=== PATIENT | female | born 1965 | race Caucasian/White ===

== ENCOUNTER 2017-03-01 17:30 | Inpatient (IN) | payer MEDICARE, MEDICAID ==
[~2017-03-01] VITALS: Ht 160 cm; Wt 82.7 kg
--- NOTE | ~2017-03-01 | CON ---
PATIENT'S NAME: [facility] AGE: 51 Y [address] ROOM: [id number] [place], [place] [address] LOCATION: GPCU ADMIT DATE: 03/01/2017 Consultation DISCHARGE DATE: FAMILY PHYSICIAN: Constantine Khan DO ATTENDING PHYSICIAN: Tobi Odom CONSULTING PHYSICIAN: Tobi Odom MD. SERVICE: Gynecology Service. REASON FOR CONSULTATION: Evaluation for pelvic mass versus fibroid uterus. HISTORY OF PRESENT ILLNESS: The patient is a 51-year-old G0 female, who was admitted earlier this a.m. for concern for acute kidney injury and possible sepsis with septic shock. Of note, the patient has a history of developmental delays with associated cognitive impairments. The patient states she was not feeling well for about the last week, began having abdominal pain and nausea, vomiting, and presented to the hospital. She was transferred from [place] where she was found to be hypotensive despite IV fluids and had elevated creatinine at 9. When I see her in the room this afternoon, the patient states that her nausea and vomiting have improved as well as her abdominal pain. She denies any vaginal bleeding. PAST MEDICAL HISTORY: Significant for: 1. Hypertension. 2. Type 2 diabetes. 3. Developmental delays. 4. Morbid obesity. SURGICAL HISTORY: Negative. TRAINING AND DEVELOPMENT COORDINATOR HISTORY: The patient is a G0. Not sexually active. Denies any issues with menses. Denies any problems with heavy bleeding or cramping and denies any pelvic pressure or pain. She does report regular cycles approximately once a month. She is not on any contraceptives at this time. She states she has regular annual exams with her provider in [place] and thinks she had a normal pap in the last year. ALLERGIES: SHE HAS NO KNOWN ALLERGIES. PATIENT'S NAME: [facility] AGE: 51 Y [address] ROOM: [id number] [place], [place] [address] LOCATION: GPCU ADMIT DATE: 03/01/2017 Consultation DISCHARGE DATE: FAMILY PHYSICIAN: Constantine Khan DO ATTENDING PHYSICIAN: Tobi Odom CURRENT MEDICATIONS: 1. Lisinopril and hydrochlorothiazide. 2. Metformin. 3. Norvasc. FAMILY HISTORY: Significant for mom with heart disease and is , and an older sister and brother who are healthy. SOCIAL HISTORY: The patient lives in [place]. Denies any tobacco, alcohol, or drug use. REVIEW OF SYSTEMS: Negative except as noted above. OBJECTIVE: VITAL SIGNS: Stable. GENERAL: She appears awake and alert. CARDIAC: Regular rate and rhythm. LUNGS: Clear to auscultation bilaterally. ABDOMEN: Soft, obese, nontender. EXTREMITIES: No cyanosis or clubbing. She has trace edema. The patient at this point in time is up to chair and refuses a pelvic exam due to fear of discomfort. IMAGING DATA: Her CT scan and ultrasound report were reviewed. Ultrasound is significant for an enlarged fibroid uterus with measurements of 12.5 x 10.1 x 8.8 cm. Normal endometrial stripe. Ovaries were not visualized on the ultrasound. However, they were visualized on CT scan, and it did not show any abnormalities. She has not had any lymphadenopathy noted on CT scan either. ASSESSMENT AND PLAN: This is a 51-year-old G0, who presented to the hospital with complaints of abdominal pain, nausea, and vomiting. We were asked to see the patient for a pelvic mass. 1. It appears that the patient's pelvic mass is her fibroid uterus. The patient at this time is not having any symptoms related to her fibroids and does not complain of any issues with heavy vaginal bleeding or pelvic pressure or pain. As her abdominal pain, nausea, and vomiting have improved, it is highly unlikely that these are related in any way to her fibroid uterus and did not require further clinical followup at this point in time. Should the patient choose to decide to do something about her fibroids, if they were to become symptomatic, she will be welcome to see us in the office. I discussed with the patient that I would come by PATIENT'S NAME: YOJANA GARCIA [facility] AGE: 51 Y [address] ROOM: [address] [address] LOCATION: [facility] ADMIT DATE: 03/01/2017 Consultation DISCHARGE DATE: FAMILY PHYSICIAN: Constantine Khan DO ATTENDING PHYSICIAN: Tobi Odom and discuss findings from the ultrasound report once those are available to her. Again as noted above, the patient declined a pelvic exam, but in light of her normal ultrasound aside from a fibroid uterus, I think that it is acceptable to avoid that at this time due to patient's discomfort. If she has any questions, please do not hesitate to call me. MD KEITH ADAMS/kofi /[id number] d: 03/03/172 t: 03/03/17 0901, CONSULTATION REPORT
--- NOTE | ~2017-03-01 | DS ---
PATIENT'S NAME: [facility] AGE: 51 Y [address] ROOM: [id number] [place] [id number] LOCATION: GPCU ADMIT DATE: 03/01/2017 Discharge Summary DISCHARGE DATE: 03/04/2017 FAMILY PHYSICIAN: Constantine Khan DO ATTENDING PHYSICIAN: Tobi Odom ADMITTING DIAGNOSIS: Acute kidney injury. DISCHARGE DIAGNOSIS: Acute kidney injury, resolved. SECONDARY DIAGNOSES: 1. Hypovolemic shock. 2. Diabetes mellitus, type 2. 3. Uterus fibroid. 4. Nausea and vomiting. 5. Hypertension. 6. History of developmental delay. CONSULTATIONS: 1. Nephrology. 2. Gynecology. HISTORY OF PRESENT ILLNESS: The patient is a 51-year-old female with history of developmental delay associated with cognitive impairment and hypertension, who was transferred here to our hospital from [place] with concern for sepsis with septic shock and acute kidney injury. Apparently, she has not been feeling well for the past few days, and reports of having some viral-like illness associated with multiple episodes of non-bloody nausea and vomiting. The patient drove herself to Clinic in [place], where Dr. Khan found her systolic blood pressure to be in the 70s. She was taken to the [place] [facility], and received IV fluids. Her blood pressure improved after initial fluid bolus, but remained marginally hypotensive. She was found to have a significant elevated creatinine at 9. X-rays were performed, which did not show any obvious obstruction, but there was a concern for a pelvic mass. On arrival here, the patient reports of improving symptoms of nausea and vomiting. HOSPITAL COURSE: The patient was initially admitted to ICU for suspicions of septic shock as the patient had elevated white blood cell count of 18. The patient was initially started on broad-spectrum antibiotics, on Zyvox and meropenem. However, the patient's symptoms improved during stay. She was afebrile and leukocytosis improved the next day. UA was unremarkable. Blood culture done at [place] did not show any growth. Chest x-ray was unremarkable. The patient also had a CT abdomen as a followup for her abnormal x-ray. CT showed huge fibroid uterus. The patient was seen by Gynecology during stay. PATIENT'S NAME: [facility] AGE: 51 Y [address] ROOM: [address] [place], [place] [address] LOCATION: GPCU ADMIT DATE: 03/01/2017 Discharge Summary DISCHARGE DATE: 03/04/2017 FAMILY PHYSICIAN: Constantine Khan DO ATTENDING PHYSICIAN: Tobi Odom The patient's symptoms improved with improvement of the leukocytosis and also GALINA. The patient's creatinine on discharge was 0.9. The patient was also seen by packaging design engineer during her stay. As the patient does not have any positive blood culture, improving leukocytosis, and no source of infection, the patient was clinically ruled out from having a septic shock. Etiology of presentation most likely was secondary to hypovolemic shock due to multiple nausea and vomiting, and being on concurrent use of diuretics. The patient was discharged home in stable condition, to follow up with her primary care physician and also Dr. Redmond, an HIGH SPEED PRINTER OPERATOR doctor for her fibroid uterus. CONDITION: Stable. DISPOSITION: Home. DISCHARGE MEDICATIONS: See MAR. DISCHARGE INSTRUCTIONS: Follow up with primary care physician and HIGH SPEED PRINTER OPERATOR. FOLLOWUP: With primary care physician and HIGH SPEED PRINTER OPERATOR. Greater than 30 minutes was spent on discharge planning. MD MARLENE KING/kofi /[id number] d: 03/05/17 0402 t: 03/23/17 1533, DISCHARGE SUMMARY
--- NOTE | ~2017-03-01 | CON ---
PATIENT'S NAME: YOJANA GARCIA [facility] AGE: 51 Y [address] ROOM: [address] [place], [place] [address] LOCATION: GPCU ADMIT DATE: 03/01/2017 Consultation DISCHARGE DATE: FAMILY PHYSICIAN: Constantine Khan DO ATTENDING PHYSICIAN: Tobi Odom DATE OF CONSULTATION: 03/02/2017 REFERRING PHYSICIAN: Noe Posada MD REASON FOR CONSULTATION: Acute kidney injury. HISTORY OF PRESENT ILLNESS: A 51-year-old female with history of hypertension, type 2 diabetes, developmental delay, and associated mild cognitive impairment, admitted to [facility] after being transferred from [place] with concern for sepsis and septic shock and acute kidney injury. She was not feeling well for about a week, although the exact duration is unknown, and the patient could not specify because of her cognitive impairment. She has had some abdominal discomfort with some nausea and vomiting. She states that whenever she tries to drink something she was vomiting, several episodes of vomiting every day and was not able to keep anything down. She drove herself to the clinic at [place] with Dr. Khan, found to have a systolic blood pressure in 70s, was taken to the [place] Emergency Room, got some IV fluid. Blood pressure improved after initial fluid bolus, however, still remained marginally hypotensive. Creatinine was 9, and the patient was transferred to [facility] for higher level of care. After arrival here, she got a little bit better because of couple of liters of fluid transfusion, still has some nausea and generalized abdominal discomfort at night, but which improved this morning. No chest pain, shortness of breath, orthopnea, PND. No further nausea or vomiting. The patient was found to have significant leukocytosis of 18,000 without any definitive source. CT scan was done last night. The prelim report shows no significant hydronephrosis, bilateral lung bases are clear, but there is a midline pelvic mass, possibly uterine fibroid. The full chest CT report is still pending. She denied any numbness, tingling, weakness, or any other neurological symptoms. The patient was taking losartan hydrochlorothiazide for her blood pressure control, and she was taking it while she was having poor p.o. intake. Denied any significant NSAID use. REVIEW OF SYSTEMS: GENERAL: No fever. No chills or rigor. HEENT: No sore throat. No sinus congestion. CVS: No chest pain. No exertional shortness of breath. No leg swelling. RESPIRATORY: No shortness of breath. No cough. No wheezing. GENITOURINARY: No pain with urination. Decreased urinary frequency. No nocturia. GASTROINTESTINAL: Diffuse abdominal pain as mentioned above, but currently denies any pain or discomfort. No abdominal distention. Complains of nausea and vomiting. NEUROLOGIC: No weakness. No seizures. SKIN: No rash. No itching. ALLERGIES: No seasonal allergy. No hayfever. ENDOCRINE: No heat intolerance. No cold intolerance. PSYCHIATRIC: No sadness. No crying spells. No history of panic attack.PATIENT'S NAME: YOJANA GARCIA [facility] AGE: 51 Y [address] ROOM: [id number] [place] [id number] LOCATION: [facility] ADMIT DATE: 03/01/2017 Consultation DISCHARGE DATE: FAMILY PHYSICIAN: Constantine Khan DO ATTENDING PHYSICIAN: Tobi Odom PAST MEDICAL HISTORY: 1. Essential hypertension. 2. Diabetes mellitus type 2. 3. Developmental delay with mild cognitive impairment. 4. Obesity. PAST SURGICAL HISTORY: Unknown at this point. SOCIAL HISTORY: Unmarried, lives in a low-cost housing independently at [place]. Lifelong nonsmoker. No history of alcohol or IV drug abuse. 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 FAMILY HISTORY: Mother had heart disease. Older sister lives in [place]. Brother lives nearby also healthy. CURRENT MEDICATIONS: 1. Lisinopril/hydrochlorothiazide 20/12.5 p.o. daily. 2. Metformin 500 mg p.o. b.i.d. 3. Norvasc 5 mg p.o. daily. ALLERGIES: NO KNOWN DRUG ALLERGIES. PHYSICAL EXAMINATION: VITAL SIGNS: Blood pressure 100 over 40s to 50s, respiratory rate 18, pulse 80s to 90s temperature 99.1, saturation 93% to 95% on room air. GENERAL: Not in apparent distress. HEAD: Moist mucous membranes. Bilateral PERRLA, EOMI. NECK: No JVD, thyromegaly or lymphadenopathy. CVS: S1 and S2 normal, regular rate and rhythm. No murmur, rub, gallop. CHEST: Bilateral air entry equal. No wheeze or rales. ABDOMEN: Soft, nontender, nondistended. Bowel sounds present. EXTREMITIES: No cyanosis, clubbing, jaundice. No dependent edema. MUSCULOSKELETAL: No limitation of range of motion. SKIN: No pallor, cyanosis, icterus. ENTERTAINMENT AGENT: Alert and oriented x3. No gross findings. LABORATORY TESTING: ABG pH 7.39, pCO2 of 34, pO2 of 82, bicarbonate 20.6. Lactate 1.9. Accu-Chek blood sugar is 120s to 170s. Troponin less than 0.04. CBC, WBC 18,000 hemoglobin 11.5, platelet 253. Chemistry, sodium 137, potassium 2.8, chloride 101, bicarbonate 19, BUN 80, creatinine 5.8, calcium 7.9, albumin 2.6, phosphorus 4.9, magnesium 2.3. Anion gap initially 23, now improved to 19.8. INR 1.08. UA, specific gravity 1.015, pH 5, daily positive protein 1+, blood 2+, wbc rare, rbc 20-50, negative for epithelial cells. A1c 6.5. CT scan report still pending.PATIENT'S NAME: YOJANA GARCIA [facility] AGE: 51 Y [address] ROOM: [place] [address] LOCATION: GPCU ADMIT DATE: 03/01/2017 Consultation DISCHARGE DATE: FAMILY PHYSICIAN: Constantine Khan DO ATTENDING PHYSICIAN: Tobi Odom ASSESSMENT AND PLAN: 1. Nonoliguric acute kidney injury, CLAIRE stage 3, severe. The creatinine went up to 9, 8.4 on transfer, today is 5.8, presumable etiology is acute tubular necrosis in context of severe hypovolemia with poor intake and MITCHELL inhibitor use while being hypovolemic. We will hold her lisinopril hydrochlorothiazide for now. We will send for a repeat UA, urine sodium, potassium, creatinine, osmolality, and a protein creatinine ratio. The patient has had hypertension and diabetes in the past, but we do not know about the baseline. We will continue to monitor the creatinine while it improves. Maintain Hale. Strict intake and output. Daily standing weight. We will do renal panel today at 6:00 p.m. Please call me with the results. We will also send for urine culture sensitivity as there were some blood rbc's and wbc's in the urine, but the patient denied any symptoms of urinary tract infection. 2. Hypokalemia. The patient got 40 mEq of potassium after having a potassium of 2.8 orally. We will give at least 2 doses of 40 mEq IV KCl, and we will recheck renal panel at 6:00 p.m. as mentioned. 3. Metabolic acidosis, possibly secondary to her renal failure, is a combination of anion gap and non-anion gap acidosis. The non-anion gap acidosis component is probably from dilutional due to volume resuscitation since yesterday. We will give D5 with 3 amps of sodium bicarb at least couple of liter bolus followed by 100 mL/h. While doing that, we will closely monitor intake and output and avoid any volume overload and congestion. 4. Hypotension. Questionable history of septic shock with WBC count of 18,000 which may be due to dehydration as well. No obvious source as well. UA although appears to be slightly dirty, but has no symptoms of urinary tract infection. We will check urine culture sensitivity, and we will repeat the urinalysis to rule out any urinary tract infection. The CT scan did show clear lung bases bilaterally, and we will continue to monitor for now. 5. Pelvic mass, possible fibroid. Full CT report is still pending. We will call for CAREER EDUCATION TEACHER evaluation for further evaluation and management. Thank you for allowing me to participate in this patient's care. We will closely monitor the patient's progress along with you. MEET OLIVAS MD /modl /[id number] d: 03/02/172005 t: 03/09/17 1422, CONSULTATION REPORT
--- NOTE | ~2017-03-01 | HP ---
PATIENT'S NAME: YOJANA GARCIA [facility] AGE: 51 Y [address] ROOM: [address] [place], [place] [address] LOCATION: GICU ADMIT DATE: 03/01/2017 History & Physical DISCHARGE DATE: FAMILY PHYSICIAN: PHYSICIAN, UNKNOWN ATTENDING PHYSICIAN: Tobi Odom DATE OF SERVICE: CHIEF COMPLAINT: Acute kidney injury in the setting of suspected severe sepsis. HISTORY OF PRESENTING ILLNESS: This 51-year-old white female with history of developmental delay and associated cognitive impairment, as well as essential hypertension was transferred to [facility] from [place] with concern for sepsis with septic shock and acute kidney injury. She has not been feeling well for about a week. She is able to provide only basic elements to this history. She states she first began to feel unwell with some abdominal discomfort and nausea. She can not relate to me how well she has been eating or drinking. At some point, she developed diffuse nausea and vomiting. She states she last ate yesterday but vomited after that. She has had several episodes of vomiting today. She drove herself to the clinic in [place] where Dr. Khan found her systolic blood pressure to be in the 70s. She was taken then to the [place] Emergency Room where she received some IV fluids. Her blood pressures improved after an initial fluid bolus, but she remained marginally hypotensive. She was found to have significantly elevated creatinine at 9. X- rays were performed, which did not show an obvious obstruction, but there was some concern for a pelvic mass. On her arrival here, she reports feeling better. She still is little nauseated and has some diffuse abdominal discomfort. She denies caryl abdominal pain. She denies headaches or dizziness and no chest pain. She states she has an occasional cough, but it is nonproductive of anything. No significant shortness of breath. No numbness, tingling, or weakness in her extremities. ALLERGIES: NO KNOWN DRUG ALLERGIES. ILLNESSES: 1. Essential hypertension. 2. Diabetes mellitus type 2. 3. Developmental delay with mild cognitive impairment. 4. Morbid obesity. PATIENT'S NAME: RADHA [facility] AGE: 51 Y [address] ROOM: [address] [place], [place] [address] LOCATION: GICU ADMIT DATE: 03/01/2017 History & Physical DISCHARGE DATE: FAMILY PHYSICIAN: PHYSICIAN, UNKNOWN ATTENDING PHYSICIAN: Tobi Odom CURRENT MEDICATIONS: 1. Lisinopril and HCT (she recently quit taking this) 20.5 one tab p.o. daily. 2. Metformin 500 mg p.o. b.i.d. 3. Norvasc 5 mg p.o. daily. FAMILY HISTORY: Mother had heart disease and is . Her older sister lives in [place] and is in good health. She has a brother who lives nearby, who is also healthy apparently. SOCIAL HISTORY: She is unmarried and lives in low-cost housing independently in [place]. She is a lifelong nonsmoker and there is no significant history of alcohol use or any illicit drug use. She volunteers at a local care center. REVIEW OF SYSTEMS: As per HPI. All other organ systems were reviewed and are negative. OBJECTIVE: VITAL SIGNS: Temperature 99.1, pulse 110, respirations 16, blood pressure 104/53, O2 saturation 93% on room air. GENERAL: She is frail, anxious, only mildly ill appearing, lying in the bed, in no acute distress. She is oriented x2 only. SKIN: Supple, pink, warm, and dry. There is diffuse candidal rash in the intertriginous areas of the chest, axilla, and groin. No other skin lesions. HEENT: Otherwise, normocephalic. Sclerae nonicteric. Pupils equal, round, and reactive to light and accommodation. Extraocular movements appear intact. She has mild right exotropia. Nasal turbinates normal in appearance. Oropharynx clear. Mucous membranes are pink and dry. Dentition appears intact. NECK: Supple. Plethoric. No masses or adenopathy. No thyromegaly. No JVD. CHEST: Chest wall is symmetrical. HEART: Tachycardic but regular with occasional extrasystoles. No murmurs. LUNGS: Diminished at the bases bilaterally. No wheezes or crackles are heard. ABDOMEN: Firm, protuberant, tympanitic. Diffusely tender but without guarding or rebound. Bowel sounds are rare but present. and RECTAL: Not done. She has a Hale catheter in place. EXTREMITIES: Display trace pitting edema. No cyanosis. No clubbing. NEUROLOGICAL: Mentation is slowed. She is a little hard of hearing and distracts easily. Cranial nerves 2 through 12 appear grossly intact. Sensation appears normal. Strength is 4 to 5 out of 5 bilaterally in upper and lower extremities. DTRs are 2+ and symmetrical. Gait is not observed. PATIENT'S NAME: YOJANA GARCIA [facility] AGE: 51 Y [address] ROOM: [id number] [place], [place] [address] LOCATION: [facility] ADMIT DATE: 03/01/2017 History & Physical DISCHARGE DATE: FAMILY PHYSICIAN: PHYSICIAN, UNKNOWN ATTENDING PHYSICIAN: Tobi Odom LABORATORY AND X-RAY DATA: From [place], chest x-ray shows poor inflation but no acute cardiopulmonary abnormality. Three views of the abdomen show a nonspecific bowel gas pattern. There is opacity in the pelvis consistent with bladder versus other. CBC showed an elevated white blood cell count of 31,000, hemoglobin of 14.1, hematocrit of 40, platelets 441. Chemistries revealed a BUN and creatinine of 85 and 9.2 respectively, sodium and potassium of 138 and 3.1, chloride and CO2 are 93 and 19.5, calcium 9.2. AST and ALT of 22 and 20 respectively, bilirubin 0.7. Glucose was 176. C-reactive protein was 17.2. Urinalysis in the clinic showed specific gravity greater than 1.030. A full urinalysis report is not available. ASSESSMENT AND PLAN: 1. Acute kidney injury, suspect a prerenal cause. Difficult to know if she has actually been taking lisinopril or not, but this may be a contributing factor. She does not appear to have taken any nonsteroidal anti-inflammatory drugs. We will plan to continue with careful IV fluid hydration tonight and follow her trend. She is making small amounts of urine. We will plan for Nephrology consultation in the morning and depending on her clinical course. Her electrolytes are reasonably normal, and she is not acidotic. There does not appear to be an urgent need to consider dialysis. 2. Hypotension. Differential diagnosis includes severe sepsis with septic shock versus dehydration. We will continue with IV fluid hydration as above carefully and watch her fluid volume balance. Blood cultures were obtained in [place], and we will follow up on those when the results are known. We will get urinalysis and urine culture and sensitivity here. Plan to continue with broad-spectrum antibiotic therapy. We will switch from Zosyn to meropenem to avoid any additional nephrotoxic injury. Also, levofloxacin and linezolid for now. We will tailor her antibiotic therapy once cultures are available, and additional imaging studies can be obtained (see below). 3. Abdominal pain, nonspecific. Concern for intraabdominal infection. I suspect a urinary focus. We will get CT scan of the abdomen and pelvis tonight with oral contrast only and follow up on that when the results are known. 4. Diabetes mellitus type 2, historically well controlled. We will manage with Accu-Cheks and sliding scale insulin while she is inpatient. 5. Essential hypertension. We will hold the oral antihypertensive regimen. Hydrate as above and follow this serially. 6. Developmental delay with mild cognitive impairment. We will engage in some restorative cares as above, and maintain a goal of return to independent living once she is ready for discharge. 7. Deep venous thrombosis prophylaxis. We will utilize subcu heparin while she is inpatient. PATIENT'S NAME: YOJANA GARCIA [facility] AGE: 51 Y [address] ROOM: [place] [address] LOCATION: [facility] ADMIT DATE: 03/01/2017 History & Physical DISCHARGE DATE: FAMILY PHYSICIAN: PHYSICIAN, UNKNOWN ATTENDING PHYSICIAN: Tobi Odom MD TIARA GREEN/kofi /[id number] D: 035 T: 920 HISTORY & PHYSICAL
[2017-03-01] MEDS ORDERED: NORVASC5 MG PO (19:20)
[2017-03-01] MEDS ORDERED: PERIDEX15 ML PO (19:20)
[2017-03-01] MEDS ORDERED: GLUCOPHAGE500 MG PO (19:20)
[2017-03-01 19:49] LABS: CALCIUM 8.2 mg/dL (8.5-10.5); CHLORIDE 96 mMol/L (96-110); CO2 21 mMol/L (22-32); CPK 48 IU/L (21-215); SODIUM 137 mMol/L (135-145)
[2017-03-01 19:53] LABS: ANION GAP 23.2 (10.0-19.0); BLOOD UREA NITROGEN 86 mg/dL (6-24); CREATININE 8.4 mg/dL (0.5-1.1); ESTIMATED GFR (MDRD EQUATION) 5; MAGNESIUM 2.5 mg/dL (1.8-2.6); POTASSIUM 3.2 mMol/L (3.7-5.1)
[2017-03-01 20:49] LABS: BICARBONATE 22.1 mmol/L (18.0-23.0); PCO2 47 mmHg (35-45); PO2 32 mmHg (80-90)
[2017-03-01 20:57] LABS: INR - (THERAPEUTIC) 1.08 (0.92-1.07); PROTIME 11.4 SECONDS (9.8-11.4)
[2017-03-01 21:03] LABS: BICARBONATE 20.6 mmol/L (18.0-23.0); PCO2 34 mmHg (35-45); PO2 91 mmHg (80-90)
[2017-03-02 02:13] LABS: BICARBONATE 20.6 mmol/L (18.0-23.0); PCO2 34 mmHg (35-45); PO2 82 mmHg (80-90)
--- NOTE | 2017-03-02 04:23 | NUR ---
PT ADMITTED FROM [place] [facility]IA [facility]. ROGERS CATHETER IN PLACE WITH 50 ML OUTPUT. PIV X2 IN PLACE, PATENT. BP HYPOTENSIVE AT TIMES, ONE 500 ML NS BOLUS GIVEN FOR MAP<65. SBP 100S-110S AND MAPS 70S-90S AT THIS TIME WITHOUT PRESSOR SUPPORT. UOP INCREASING THROUGHOUT SHIFT AND NOW ADEQUATE AMOUNTS. MINIMAL ASSISTANCE NEEDED FOR REPOSITIONING/AMBULATION. TOLERATING LIQUIDS WELL. BM X1 THIS SHIFT. AREA AROUND BREATS WITH RED RASH. BENY HEWITT RN
[2017-03-02 06:13] LABS: BASOPHIL % 0.1 %; EOSINOPHIL % 0.1 %; HEMATOCRIT 33.9 % (33.0-46.0); HEMOGLOBIN 11.5 g/dL (10.0-15.0); IMMATURE GRANULOCYTE # 0.2 K/uL (0.0-0.3); IMMATURE GRANULOCYTE % 1.1 %; LYMPHOCYTE # 0.8 K/uL (0.8-4.0); LYMPHOCYTE % 4.6 %; MCH 28.3 pg (27.0-34.0); MCHC 33.9 gm/dL (32.0-36.5); MCV 83.3 fl (83.0-98.0); MONOCYTE # 0.7 K/uL (0.0-1.0); MONOCYTE % 3.8 %; MPV 10.8 fl (9.4-12.4); NEUTROPHIL # (ANC) 16.2 K/uL (1.8-7.8); NEUTROPHIL % 90.3 %; NRBC % 0 /100WBC (0-0.00); PLATELET COUNT 253 K/uL (150-450); RBC 4.07 M/uL (3.50-5.50); RDW-CV 12.9 % (11.9-14.6)
[2017-03-02 06:19] LABS: ALBUMIN 2.6 gm/dL (3.5-5.0); CALCIUM 7.9 mg/dL (8.5-10.5); MAGNESIUM 2.3 mg/dL (1.8-2.6); PHOSPHORUS 4.9 mg/dL (2.5-4.9)
[2017-03-02 06:21] LABS: ANION GAP 19.8 (10.0-19.0); CREATININE 5.8 mg/dL (0.5-1.1); POTASSIUM 2.8 mMol/L (3.7-5.1)
[2017-03-02 07:22] LABS: BILIRUBIN URINE NEGATIVE (NEGATIVE); BLOOD URINE 50 /UL (NEGATIVE); COLOR URINE YELLOW (YELLOW); GLUCOSE URINE NEGATIVE (NEGATIVE); KETONE URINE NEGATIVE (NEGATIVE); LEUKOCYTES URINE 25 /UL (NEGATIVE); NITRITE URINE NEGATIVE (NEGATIVE); PROTEIN URINE 30 mg/dL (NEGATIVE); SPEC GRAVITY URINE 1.015 (1.003-1.035); TURBIDITY URINE CLEAR (CLEAR); UROBILINOGEN URINE 1 mg/dL (NORMAL)
[2017-03-02 07:40] LABS: BACTERIA URINE NEGATIVE (NEGATIVE); EPITHELIAL URINE 0-2 #/HPF (NEGATIVE); WBC URINE 0-2 #/HPF (NEGATIVE)
[2017-03-02 11:13] LABS: BILIRUBIN URINE NEGATIVE (NEGATIVE); BLOOD URINE 50 /UL (NEGATIVE); COLOR URINE YELLOW (YELLOW); GLUCOSE URINE NEGATIVE (NEGATIVE); KETONE URINE NEGATIVE (NEGATIVE); LEUKOCYTES URINE NEGATIVE /UL (NEGATIVE); NITRITE URINE NEGATIVE (NEGATIVE); PROTEIN URINE 30 mg/dL (NEGATIVE); SPEC GRAVITY URINE 1.015 (1.003-1.035); TURBIDITY URINE CLEAR (CLEAR); UROBILINOGEN URINE NORMAL (NORMAL)
[2017-03-02 11:19] LABS: AMORPHOUS URINE 1+ (NEGATIVE); BACTERIA URINE NEGATIVE (NEGATIVE); EPITHELIAL URINE NEGATIVE #/HPF (NEGATIVE); RBC URINE 20-50 #/HPF (NEGATIVE); WBC URINE RARE #/HPF (NEGATIVE)
--- NOTE | 2017-03-02 15:54 | NUR ---
Significant Event: Patient alert and oriented x3. Developmentally delayed, but high functioning. Tele on- NSR. VSS, on room air. 1+ edema to legs, feet. Still need sputum culture. Hale patent and draining yellow urine. Last BM 03/01, still need c diff sample. Redness to top of L) foot. Yeasty between and underneath breasts. IV to L) wrist, saline locked. IV to R) wrist infusing D5 with 150 mEq bicarb at 100 mL/hr and infusing potassium chloride. Follow up: Transfer up to PCU. ADA diet, AC/HS accucheks. Daily standing weight.
[2017-03-02 19:30] LABS: ALBUMIN 2.7 gm/dL (3.5-5.0); ANION GAP 13.3 (10.0-19.0); CALCIUM 7.6 mg/dL (8.5-10.5); POTASSIUM 3.3 mMol/L (3.7-5.1)
[2017-03-02 19:32] LABS: CREATININE 2.8 mg/dL (0.5-1.1); PHOSPHORUS 1.5 mg/dL (2.5-4.9)
--- NOTE | 2017-03-03 04:47 | NUR ---
Significant Event: Pt A&Ox3. High functioning cognitive impairment. VS stable, remains on RA; no c/o pain on shift. On 03/02/17, pt received 40mEq PO KCl and 120mEq IV KCl. PIV in Lt wrist, SL and Rt wrist with 150mEq NaHCO3 infusing @ 100/hr. Hale patent. Hale is to remain in. Was c/o abdominal pain; US of pelvis ordered. Found huge fibroid uterus and could not visualize ovaries. Gyno on case, did not do pelvic exam, possible pelvic exam today. Ambulates SBA. Generalized trace edema. Still need: sputum culture and C. diff culture. Follow up: Sputum/C. diff culture. Pelvic exam. Continue plan of care.
[2017-03-03 10:27] LABS: BASOPHIL % 0.1 %; EOSINOPHIL % 0.1 %; HEMATOCRIT 31.4 % (33.0-46.0); HEMOGLOBIN 10.6 g/dL (10.0-15.0); IMMATURE GRANULOCYTE # 0.1 K/uL (0.0-0.3); IMMATURE GRANULOCYTE % 1.7 %; LYMPHOCYTE # 0.8 K/uL (0.8-4.0); LYMPHOCYTE % 9.2 %; MCH 28.4 pg (27.0-34.0); MCHC 33.8 gm/dL (32.0-36.5); MCV 84.2 fl (83.0-98.0); MONOCYTE # 0.4 K/uL (0.0-1.0); MONOCYTE % 4.2 %; MPV 10.8 fl (9.4-12.4); NEUTROPHIL % 84.7 %; NRBC % 0 /100WBC (0-0.00); PLATELET COUNT 209 K/uL (150-450); RBC 3.73 M/uL (3.50-5.50); WBC 8.3 K/uL (4.0-11.0)
[2017-03-03 10:43] LABS: ALBUMIN 2.4 gm/dL (3.5-5.0); CALCIUM 7.7 mg/dL (8.5-10.5); CREATININE 1.7 mg/dL (0.5-1.1); POTASSIUM 3.5 mMol/L (3.7-5.1); TOTAL BILIRUBIN 0.2 mg/dL (0.0-1.5); TOTAL PROTEIN 5.7 g/dL (6.0-8.4)
[2017-03-03 10:50] LABS: ANION GAP 11.5 (10.0-19.0)
--- NOTE | 2017-03-03 15:58 | NUR ---
Significant event: A/O x 3. High functioning Developmentally delayed. VSS on room air. Hale intact with 750ml of UOP. Need to encourage patient to drink fluids. IV to right wrist with D5 runnig at 50ml/hr. 1 loose stool this am, was unable to obtain c-diff sample, one is still needed along with a sputum culture. IV potassium replaced over 4 hours today. Up with SBA. No c/o pain throughout shift.
[2017-03-04 03:35] LABS: BASOPHIL % 0.1 %; EOSINOPHIL % 0.4 %; HEMATOCRIT 30.9 % (33.0-46.0); HEMOGLOBIN 10.2 g/dL (10.0-15.0); IMMATURE GRANULOCYTE # 0.1 K/uL (0.0-0.3); LYMPHOCYTE % 14.6 %; MCH 28.4 pg (27.0-34.0); MCV 86.1 fl (83.0-98.0); MONOCYTE # 0.4 K/uL (0.0-1.0); MPV 10.9 fl (9.4-12.4); NEUTROPHIL # (ANC) 5.5 K/uL (1.8-7.8); NEUTROPHIL % 78.9 %; NRBC % 0 /100WBC (0-0.00); PLATELET COUNT 180 K/uL (150-450); RBC 3.59 M/uL (3.50-5.50); RDW-CV 12.8 % (11.9-14.6)
[2017-03-04 03:53] LABS: ALBUMIN 2.2 gm/dL (3.5-5.0); ALK PHOS 119 IU/L (33-138); ALT 28 IU/L (12-78); ANION GAP 9.6 (10.0-19.0); AST 28 IU/L (10-40); BLOOD UREA NITROGEN 25 mg/dL (6-24); CALCIUM 7.6 mg/dL (8.5-10.5); CHLORIDE 104 mMol/L (96-110); CO2 33 mMol/L (22-32); CREATININE 0.9 mg/dL (0.5-1.1); POTASSIUM 3.6 mMol/L (3.7-5.1); SODIUM 143 mMol/L (135-145); TOTAL PROTEIN 5.5 g/dL (6.0-8.4)
[2017-03-04 03:56] LABS: ESTIMATED GFR (MDRD EQUATION) > 60; TOTAL BILIRUBIN 0.3 mg/dL (0.0-1.5)
--- NOTE | 2017-03-04 04:00 | NUR ---
Significant Event: Patient alert and oriented x3. High functioning developmentally delayed. Vital signs stable. On RA for most of the shift. 2L NC applied for sats in the mid 80s with sleep. Patient drank little despite encouragement from RN. D5 continues at 50ml/hr to right wrist PIV. C-Dif sample was collected. Came back negative. Hale patent with 475ml uop. Up with stand-by assist. No complaints of pain. Slept most of the shift. Calm and cooperative with all cares. Follow up: Continue to monitor per plan of care.
--- NOTE | 2017-03-04 15:56 | NUR ---
1530 PT DISMISSED TO USP IN [place] WITH SISTER TO DRIVE. 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 AT TIME OF DC PT IS A/O PINK WARM AND DRY, STEADY ON FEET WHEN UP AND AROUND IN ROOM, IV TO RT WRIST IS DC'D CATH INTACT. ROGERS IS DC'D AT 1500. PT ABLE TO VOID SMALL AMT. LUNGS ARE CLEAR ABDOMEN IS SOFT AND NONTENDER WITH PRESENT BOWEL SOUNDS. PULSES ARE STRONG SHE HAS SLIGHT PEDAL AND ANKLE EDEMA. DC INSTRUCTIONS TO PT AND SISTER INCLUDE MEDICATIONS, PRESCRIPTIONS, MEDICATION INSTRUCTIONS, FOLLOW UP CARE AND APPOINTMENTS. BOTH VERBALIZE UNDERSTANDING. W/C TO [facility] [employer] FOR DC TO HOME
== END 2017-03-04 15:30 | disposition disaster alternative care site (69) | DRG 871 ==
LOC: GICU 19:04 → GPCU 03-02 19:01
PROVIDERS: Internal Medicine; Internal Medicine Nephrology; ADMIT Family Medicine
DX: A41.9 Sepsis, unspecified organism (principal); N17.0 Acute kidney failure with tubular necrosis; R65.21 Severe sepsis with septic shock; N39.0 Urinary tract infection, site not specified; E87.0 Hyperosmolality and hypernatremia; E11.9 Type 2 diabetes mellitus without complications; E86.0 Dehydration; E87.6 Hypokalemia; I10 Essential (primary) hypertension; D25.9 Leiomyoma of uterus, unspecified; R62.50 Unspecified lack of expected normal physiological development in childhood; G31.84 Mild cognitive impairment of uncertain or unknown etiology
CPT/HCPCS: C9113; J1644; J1956; J2020; J2185; J3480; J7030; J7040; J7050; J7060